=== PATIENT | male | born 1950 | race Caucasian/White ===

== ENCOUNTER 2018-01-20 10:28 | Outpatient (CLI) | payer MEDICARE, OTHER ==
[2018-01-20 10:58] LABS: INR 2.3 (0.8-1.2); PT - PROTHROMBIN TIME 24.8 secs (9.9-12.6)
== END 2018-01-20 10:29 | disposition home or self-care (01) ==
LOC: LAB 10:28
PROVIDERS: ATTEND Physician Assistant Surgical
DX: Z79.01 Long term (current) use of anticoagulants (principal)
CPT/HCPCS: 36415; 85610

== ENCOUNTER 2018-01-23 10:14 | Outpatient (CLI) | payer MEDICARE, OTHER ==
[2018-01-23 10:35] LABS: INR 1.5 (0.8-1.2); PT - PROTHROMBIN TIME 16.7 secs (9.9-12.6)
== END 2018-01-23 10:15 | disposition home or self-care (01) ==
LOC: LAB 10:14
PROVIDERS: ATTEND Surgery
DX: Z98.890 Other specified postprocedural states (principal)
CPT/HCPCS: 36415; 85610

== ENCOUNTER 2018-01-27 10:14 | Outpatient (CLI) | payer MEDICARE, OTHER ==
[2018-01-27 10:47] LABS: INR 1.6 (0.8-1.2); PT - PROTHROMBIN TIME 18.1 secs (9.9-12.6)
== END 2018-01-27 10:15 | disposition home or self-care (01) ==
LOC: LAB 10:14
PROVIDERS: ATTEND Surgery
DX: Z98.890 Other specified postprocedural states (principal)
CPT/HCPCS: 36415; 85610

== ENCOUNTER 2018-01-30 10:35 | Outpatient (CLI) | payer MEDICARE, OTHER ==
[2018-01-30 11:30] LABS: PT - PROTHROMBIN TIME 21.8 secs (9.9-12.6)
== END 2018-01-30 10:36 | disposition home or self-care (01) ==
LOC: LAB 10:35
PROVIDERS: ATTEND Surgery
DX: Z98.890 Other specified postprocedural states (principal); Z79.01 Long term (current) use of anticoagulants
CPT/HCPCS: 36415; 85610

== ENCOUNTER 2018-09-19 06:05 | Day surgery (SDC) | payer MEDICARE, OTHER ==
[2018-09-19] MEDS ORDERED: CEFAZOLIN SODIUM IN 0.9 % NACL 2 GM/100 ML BAG IV ONE (06:19)
[2018-09-19] MEDS ORDERED: LACTATED RINGERS 1,000 ML IV ONE ×2 (06:35→08:56)
[2018-09-19] MEDS ORDERED: BUPIVACAINE 0.5% PF 10 ML VIAL ONE (06:59)
--- NOTE | 2018-09-19 06:59 | ANESTHESIA ---
Pre-Anesthesia VS, & Labs - Diagnosis Bilateral inguinal hernias - Procedure Bilateral inguinal hernia repairs Vital Signs: Temp Pulse Resp BP Pulse Ox 36.4 C L 86 18 138/99 H 98 09/19/18 06:15 09/19/18 06:15 09/19/18 06:15 09/19/18 06:15 09/19/18 06:15 Height 5 ft 10 in Weight (kg) 80.8 kg - NPO >8 hours Last Fluid Intake: 0400 Home Medications and Allergies Home Medications: Ambulatory Orders Amlodipine Besylate 10 mg PO DAILY 09/11/18 Ascorbic Acid [Vitamin C] 500 mg PO DAILY 09/11/18 Folic Acid 1 mg PO DAILY 09/11/18 Hydrochlorothiazide 12.5 mg PO DAILY 09/11/18 Latanoprost/Pf [Latanoprost 0.005% Eye Drop] 7.5 ml OP DAILY 09/11/18 Lisinopril 20 mg PO DAILY 09/11/18 Metoprolol Succinate 12.5 mg PO DAILY 09/11/18 Rivaroxaban [Xarelto] 20 mg PO DAILY 09/11/18 Rosuvastatin Calcium 20 mg PO QPM 09/11/18 Timolol 0.5% Ophth Drops [Timoptic 0.5% Ophth Drops] 1 drops OPTH BID 09/11/18 Vitamin E 400 unit PO DAILY 09/11/18 Amlodipine Besylate 10 mg PO DAILY 09/11/18 Ascorbic Acid [Vitamin C] 500 mg PO DAILY 09/11/18 Folic Acid 1 mg PO DAILY 09/11/18 Hydrochlorothiazide 12.5 mg PO DAILY 09/11/18 Latanoprost/Pf [Latanoprost 0.005% Eye Drop] 7.5 ml OP DAILY 09/11/18 Lisinopril 20 mg PO DAILY 09/11/18 Metoprolol Succinate 12.5 mg PO DAILY 09/11/18 Rivaroxaban [Xarelto] 20 mg PO DAILY 09/11/18 Rosuvastatin Calcium 20 mg PO QPM 09/11/18 Timolol 0.5% Ophth Drops [Timoptic 0.5% Ophth Drops] 1 drops OPTH BID 09/11/18 Vitamin E 400 unit PO DAILY 09/11/18 Allergies/Adverse Reactions: Allergies Allergy/AdvReac Type Severity Reaction Status Date / Time No Known Drug Allergies Allergy Verified 09/11/18 10:41 Anes History & Medical History - Anesthetic History Anesthesia Complications: reports: No previous complications - Medical History Cardiovascular: reports: Hypertension, High cholesterol, Coronary artery disease (>4mets), Angina, Atrial flutter, Atrial fibrillation, Valve disorder (Had mitral valve repair in december 2017), Other Pulmonary: reports: None Gastrointestinal: reports: None Urinary: reports: None Neuro: reports: None Musculoskeletal: reports: None Endocrine/Autoimmune: reports: None Blood Disorders: reports: None Skin: reports: None Smoking Status: Never smoker Psychosocial: reports: No issues indicated - Surgical History Eyes Ears Nose Throat (EENT): Tonsil/Adenoidectomy Cardiothoracic: CABG, Other (mitral valve repair in 2018) Exam General: Alert, Oriented x3, Cooperative, No acute distress Dental: Poor dentition Mouth Openin Fingerbreadth Neck Mobility: Normal Mallampati classification: II Thyromental Distance: greater than 6 cm Respiratory: Lungs clear, Normal breath sounds, No respiratory distress, No accessory muscle use Cardiovascular: Regular rate, Other (diastolic murmur) Mental/Cognitive Status: Alert/Oriented X3, Normal for patient Plan Anesthesia Type: General Consent for Procedure(s) Verified and Reviewed: Yes Code Status: Attempt Resuscitation ASA classification: 3-Severe systemic disease Is this case an emergency?: No
[2018-09-19] MEDS ORDERED: BUPIVACAINE 0.5% PF 30 ML VIAL SUBQ ONE (07:54)
[2018-09-19] MEDS ORDERED: PHENYLEPHRINE 50 MG/5 ML VIAL IV ONE (09:12)
[2018-09-19] MEDS ORDERED: DEXAMETHASONE 4 MG/ML VIAL IVP ONE (09:12)
[2018-09-19] MEDS ORDERED: MIDAZOLAM 2 MG/2 ML VIAL IVP ONE (09:12)
[2018-09-19] MEDS ORDERED: fentaNYL 250 MCG/5 ML VIAL IVP ONE (09:12)
[2018-09-19] MEDS ORDERED: ONDANSETRON 4 MG/2 ML VIAL IVP ONE (09:12)
[2018-09-19] MEDS ORDERED: PROPOFOL 200 MG/20 ML VIAL IVP ONE (09:12)
--- NOTE | 2018-09-19 09:14 | OPERATIVE REPORT ---
Operative Report - General Procedure Date: 09/19/18 Planned Procedure: Bilateral inguinal herniorrhaphy Pre-Op Diagnosis: Bilateral inguinal hernia Procedure Performed: Bilateral direct inguinal herniorrhaphy with mesh and excision of bilateral cord lipoma Post Op Diagnosis: Bilateral direct inguinal hernias and bilateral cord lipoma - Procedure Note Primary Surgeon: Ronnie Weinstein MD Anesthesia Provider: Tre Garcia CRNA Anesthesia Technique: General ET tube, Local (30 cc of half percent Marcaine (15 cc per side)) IV Fluids (mL): 1,100 Estimated Blood Loss (mL): 15 Drain/Tube Type: Other (None.) Complications: None. - Other Other Information/Narrative: OPERATIVE DESCRIPTION/REPORT: After verbal and written informed consent was obtained detailing the risks of infection, bleeding requiring transfusion with its risks, nerve injury, and , and after I met with the patient confirming the surgery and the site of the surgery, the patient was brought to the operative suite and placed supine on the operating table. Great care was taken to avoid pressure points to prevent pressure necrosis or nerve injury. Monitoring devices were applied along with TEDs and pneumatic compressive stockings (to prevent DVT). The patient received preoperative antibiotics for surgical prophylaxis. Tre Garcia CRNA sedated and anesthetized the patient for the entire procedure. The patient was prepped and draped in the usual sterile manner. With the patient draped my initials were clearly visible. A "time in" then confirmed that the patient was identified with 3 identifiers (name, date and medical record number), the history and physical was in the chart, the signed consent confirming the procedure was in the chart, the patient was in the correct position, the aforementioned prophylactic measures were in place or given, we had the correct personnel and equipment to complete the procedure and that anesthesia, surgery and nursing were given an opportunity to express any concerns. With the agreement of everyone in the room, we proceeded with the operation. The left side was significantly smaller than the right side and I started with the left side. A standard inguinal incision was made and dissection was carried down to the external oblique aponeurosis using a combination of Metzenbaum scissors and Bovie electrocautery. The external oblique aponeurosis was cleared of overlying adherent tissue, and the external ring was delineated. The external oblique was the incised with a scalpel and this incision was carried out to the external ring using Metzenbaum scissors. Having exposed the inguinal canal, the cord structures were from the canal using blunt dissection, and a [place] drain was placed around the cord structures at the level of the pubic tubercle. This [place] drain was then used to retract the cord structures as needed. Adherent cremasteric muscle was dissected free from the cord using Bovie electrocautery. The cord was then explored using a combination of sharp and blunt dissection, and no sac was found. Dissection along the cord structures found a lipoma that was dissected back to the internal ring, transected with Bovie electrocautery and allowed to retract back into the abdomen. The hernia was found coming from the floor of the inguinal canal medial to the inferior epigastric vessels. This was dissected back to the hernia opening. The hernia was inverted back into the abdominal cavity and a Covidien enlay patch (Ref# [id number], Lot# [id number], used by date 2023-04-14) was placed on the floor of the inguinal canal and secured superiorly to the conjoined tendon and inferiorly to the shelving edge of Pouparts ligament using running 2-0 PDS sutures. Both sutures were started at the pubic tubercle and run laterally. The mesh was secured around the cord structures with a 2-0 PDS loosely thus creating a new internal ring. The [place] drain was removed. As there was some bleeding from the cord contents, hemostasis was obtained using Bovie electrocautery. The incision in the external oblique was approximated using a 2-0 Vicryl in a running fashion, thus reforming the external ring. The fascia and skin were injected with 15 cc of half percent Marcaine. The skin incision was approximated with 4-0 Monocryl in a subcuticular fashion. Attention was then directed to the right-hand side. A standard inguinal incision was made and dissection was carried down to the external oblique aponeurosis using a combination of Metzenbaum scissors and Bovie electrocautery. The external oblique aponeurosis was cleared of overlying adherent tissue, and the external ring was delineated. The external oblique was the incised with a scalpel and this incision was carried out to the external ring using Metzenbaum scissors. Having exposed the inguinal canal, the cord structures were from the canal using blunt dissection, and a Rishabh drain was placed around the cord structures at the level of the pubic tubercle. This Rishabh drain was then used to retract the cord structures as needed. Adherent cremasteric muscle was dissected free from the cord using Bovie electrocautery. The cord was then explored using a combination of sharp and blunt dissection, and no sac was found. Dissection along the cord structures found a lipoma that was dissected back to the internal ring, transected with Bovie electrocautery and allowed to retract back into the abdomen. The hernia was found coming from the floor of the inguinal canal medial to the inferior epigastric vessels. This was dissected back to the hernia opening. The hernia was inverted back into the abdominal cavity and a Bard mesh PerFix plug (reference #[id number], lot #[id number], used by date 2023-04-11) was inserted into the defect to keep the hernia sac out of my way while he repaired the floor. This was secured to the edges of the hernia sac using a 2-0 PDS suture. The enlay patch was placed on the floor of the inguinal canal and secured superiorly to the conjoined tendon and inferiorly to the shelving edge of Pouparts ligament using interrupted 0 PDS sutures. An additional 0 PDS suture was placed at the pubic tubercle. The mesh was secured around the cord structures with a 0 PDS loosely thus creating a new internal ring. The Rishabh drain was removed. Hemostasis was obtained using Bovie electrocautery. The incision in the external oblique was approximated using a 2-0 Vicryl in a running fashion, thus reforming the external ring. The fascia and skin were injected with 15 cc of half percent Marcaine. The skin incision was approximated with 4-0 Monocryl in a subcuticular fashion. The skin was cleaned of its prep and Dermabond applied. At this point a time out was performed that confirmed that all the counts were correct, the procedure that was performed, the blood loss, the IV fluids administered, and the patients condition. Dressings were applied. Gentle downward traction ensured that the testes were well seated in the scrotum. Having tolerated the procedure well, the patient was taken to recovery room in good and stable condition. Mary Graceon disclaimer: This document was created in part using voice recognition technology. Because of the inherent limitations of the system ([employer]'s [employer] user manual states that the licensee understands that speech recognition is a statistical process and that recognition errors are inherent in the process), occasional same sounding word substitutions and grammatical errors do occur and persist despite proofreading. Please read this document for context.
[2018-09-19] MEDS: fentaNYL 100 MCG/2 ML VIAL ONE ×2 (09:26→09:36)
[2018-09-19] MEDS ORDERED: HYDROmorphone 0.5 MG/0.5 ML SYRINGE IVP PRN (09:32)
[2018-09-19] MEDS ORDERED: HYDROcod/ACETAM 5/325 MG TABLET PO PRN (09:32)
[2018-09-19] MEDS ORDERED: ONDANSETRON 4 MG/2 ML VIAL IVP PRN (09:32)
[2018-09-19] MEDS ORDERED: HYDROmorphone 0.5 MG/0.5 ML SYRINGE ONE (09:33)
[2018-09-19] MEDS ORDERED: HYDROcod/ACETAM 5/325 MG TABLET ONE (10:24)
[2018-09-19 12:50] VITALS: BP 122/80
== END 2018-09-19 06:06 | disposition home or self-care (01) ==
LOC: SDS 06:05
PROVIDERS: ATTEND Surgery
PROC: 0VBH0ZZ Excision of Bilateral Spermatic Cords, Open Approach (ICD-10-PCS; 2018-09-19)
PROC: 0YUA0JZ Supplement Bilateral Inguinal Region with Synthetic Substitute, Open Approach (ICD-10-PCS; principal; 2018-09-19 07:30)
DX: D17.6 Benign lipomatous neoplasm of spermatic cord (principal); I48.92 Unspecified atrial flutter; I49.1 Atrial premature depolarization; I10 Essential (primary) hypertension; I25.119 Atherosclerotic heart disease of native coronary artery with unspecified angina pectoris; I48.91 Unspecified atrial fibrillation; Z79.899 Other long term (current) drug therapy; Z95.1 Presence of aortocoronary bypass graft; Z79.01 Long term (current) use of anticoagulants; Z86.79 Personal history of other diseases of the circulatory system
CPT/HCPCS: 49505; A9270; C1781; J0690; J1170; J3010; J7120